=== PATIENT | female | born 1955 | race Caucasian/White ===

== ENCOUNTER 2020-09-22 12:16 | Emergency (ER) | payer OTHER, SELFPAY ==
--- NOTE | ~2020-09-22 | XR_ITS ---
EXAMINATION: XR chest 2V EXAM DATE: 09/22/2020 12:45 INDICATION: Cough, history lung metastases. Clinical concern for pneumonia. TECHNIQUE: Frontal and lateral projections of the chest obtained and reviewed. There is no prior june dy for comparison. FINDINGS: There is a left-sided portacatheter. The lungs are clear. There are no pleural effusions. The cardiomediastinal silhouette is within normal limits. There is no pneumothorax suspected. The bones and soft tissues are unremarkable. There are cholecystectomy clips. IMPRESSION: No acute cardiopulmonary findings. Reviewed, dictated and finalized at location A. [employer]
[2020-09-22 12:29] VITALS: BP 132/74; PULSE 82; RESP 18; TEMP 37.2; O2SAT 95
--- NOTE | 2020-09-22 13:01 | ED.URI ---
HPI - URI/Sore Throat General Chief Complaint: Upper Respiratory Infection Stated Complaint: cough,runny nose Time Seen by Provider: 09/22/20 12:36 Source: patient and RN notes reviewed Mode of arrival: ambulatory Limitations: no limitations History of Present Illness HPI Narrative: Patient presents today complaining of a 4-day history of rhinorrhea, productive cough with yellow/green sputum that is now blood-tinged, sore throat, bilateral ear pain. Patient had a COVID-19 test done 2 days ago prior to a colonoscopy. That test was negative. Patient is currently undergoing chemotherapy for breast cancer with metastases to lung, liver, and colon. Denies shortness of breath or nasal congestion. She currently rates her pain 5/10 and has been taking Coricidin with relief. Since becoming ill, she has not been in contact with her oncologist. She is a non-smoker. States she was recently exposed to her granddaughter who is also sick with similar symptoms. MD elicited complaint: cough, sore throat and rhinorrhea Related Data Allergies Allergy/AdvReac Type Severity Reaction Status Date / Time No Known Allergies Allergy Verified 09/22/20 13:03 Review of Systems Review of Systems: Narrative: CONSTITUTIONAL: Denies body aches, fever, chills, or sweats. EYES: Denies visual changes, redness, or discharge. ENT: Denies congestion. + Rhinorrhea, sore throat, ear pain CARDIOVASCULAR: Denies chest pain, palpitations, or edema. RESPIRATORY: Denies dyspnea.+ Productive cough GASTROINTESTINAL: Denies abdominal pain, nausea, vomiting, or diarrhea. GENITOURINARY: Denies dysuria or hematuria. SKIN: Denies rash, itching, or wounds. MUSCULOSKELETAL: Denies back pain, joint pain, or myalgia. NEUROLOGIC: Denies numbness, tingling, or weakness. + Headache PSYCH: Denies depression or anxiety. PMFSH Past Medical History Medical History (Updated 09/22/20 @ 13:53 by Melia Garcia, [facility], ) Crohn's disease Diabetes Hypertension Metastatic breast cancer Comments At time of signature, I have reviewed and agree with nursing past medical, surgical, social and family history unless otherwise noted. Please see nursing chart for further information. There is no relevant family history pertinent to the presenting complaint Exam Narrative: Exam Narrative: GENERAL: Ill-appearing, well-nourished, and in no acute distress. HEAD: Normocephalic, atraumatic. EYES: EOMI. No redness or drainage. Conjunctivae normal. ENT: Mucous membranes pink and moist. Nares clear with rhinorrhea. TMs normal bilaterally. Throat normal. Uvula midline. NECK: Normal AROM. Supple. No lymphadenopathy. CHEST: No respiratory distress. Clear to auscultation. HEART: Regular rate and rhythm. No murmur appreciated. Normal peripheral pulses. EXTREMITIES: Normal range of motion. No edema. SKIN: Warm, dry, no rash. Capillary refill normal. Normal skin turgor. NEURO: No focal deficits. Alert and oriented x3. Gait steady. PSYCH: Normal affect. No signs of depression or anxiety. Course Vital Signs Vital signs: Vital Signs Temperature 98.9 F 09/22/20 12:29 Pulse Rate 82 09/22/20 12:29 Respiratory Rate 18 09/22/20 12:29 Blood Pressure 132/74 09/22/20 12:29 Pulse Oximetry 95 09/22/20 12:29 Temperature 98.9 F 09/22/20 12:29 Pulse Rate 82 09/22/20 12:29 Respiratory Rate 18 09/22/20 12:29 Blood Pressure 132/74 09/22/20 12:29 Pulse Oximetry 95 09/22/20 12:29 Reviewed. Pt has been instructed to follow up with her PCP regarding her elevated blood pressure today. MDM - URI/Sore Throat MDM Narrative Medical decision making narrative: At this time, due to immunosuppression, I feel it indicated to treat patient with antibiotics at this time. Anticipatory guidance given. Patient agrees to call oncologist tomorrow to discuss symptoms. Differential Diagnosis Differential diagnosis: Likely upper respiratory infection, sinusitis, viral infection, bronchitis
== END 2020-09-22 13:20 | disposition home or self-care (01) ==
PROVIDERS: Emergency Provider Nurse Practitioner; PCP Family Medicine
DX: J06.9 Acute upper respiratory infection, unspecified (principal); K50.90 Crohn's disease, unspecified, without complications; E11.9 Type 2 diabetes mellitus without complications; I10 Essential (primary) hypertension; C50.919 Malignant neoplasm of unspecified site of unspecified female breast; C78.00 Secondary malignant neoplasm of unspecified lung; C78.7 Secondary malignant neoplasm of liver and intrahepatic bile duct; C78.5 Secondary malignant neoplasm of large intestine and rectum
CPT/HCPCS: 71046; 99203; G0463

== ENCOUNTER 2021-03-13 15:29 | Emergency (ER) | payer OTHER, SELFPAY ==
[2021-03-13 15:42] VITALS: BP 129/68; PULSE 73; RESP 20; TEMP 36.9; O2SAT 97
--- NOTE | 2021-03-13 16:19 | ED.SKABFB ---
HPI - Skin/Abscess/Foreign Bdy General Chief complaint: Skin/Abscess/Foreign Body Stated complaint: Rash on left arm Time Seen by Provider: 03/13/21 16:00 Source: patient Mode of arrival: ambulatory Limitations: no limitations History of Present Illness HPI narrative: Verito Villela is a 65 yo female with metastatic breast cancer, metastatic colon cancer, GERD, depression, HTN, DM, who [facility] with a rash on her left palmar side of her lower arm that is now starting on the same area on the right arm. It looks like severe contact dermatitis, is pruretic I called her oncologist to told her to use Benadryl and hydrocortisone cream that the rash continues to spread. It is on her lower arms and is not on any other part of her body and is on bilateral lower arms Related Data Home Medications Medication Instructions Recorded Confirmed amlodipine 10 mg PO DAILY 03/13/21 03/13/21 aspirin 81 mg PO DAILY 03/13/21 03/13/21 bupropion HCl 150 mg PO DAILY 03/13/21 03/13/21 escitalopram oxalate 20 mg PO DAILY 03/13/21 03/13/21 ferrous sulfate 325 mg PO DAILY 03/13/21 03/13/21 folic acid 1 mg PO DAILY 03/13/21 03/13/21 hydrochlorothiazide 25 mg PO DAILY 03/13/21 03/13/21 hydrocodone-acetaminophen 1 tablet PO Q6H PRN 03/13/21 03/13/21 losartan 100 mg PO DAILY 03/13/21 03/13/21 metformin 1,000 mg PO BID 03/13/21 03/13/21 metoprolol succinate 100 mg PO DAILY 03/13/21 03/13/21 omeprazole 20 mg PO DAILY 03/13/21 03/13/21 ondansetron HCl 4 mg PO Q6H PRN 03/13/21 03/13/21 prochlorperazine maleate 10 mg PO Q4H PRN 03/13/21 03/13/21 sulfasalazine 1,000 mg PO TID 03/13/21 03/13/21 Allergies Allergy/AdvReac Type Severity Reaction Status Date / Time No Known Allergies Allergy Verified 03/13/21 16:03 Review of Systems Review of Systems: Narrative: CONSTITUTIONAL: Denies fever, chills, sweats. EYES: Denies visual changes, redness, discharge. ENT: Denies rhinorrhea, congestion, sore throat, otalgia. CARDIOVASCULAR: Denies chest pain, palpitations, edema. RESPIRATORY: Denies dyspnea, wheezing, cough GASTROINTESTINAL: Denies abdominal pain, nausea, vomiting, diarrhea. GENITOURINARY: Denies dysuria, hematuria, abnormal discharge SKIN: dermatitis on L forearm , palmar side, starting on R palmar side NEUROLOGIC: Denies numbness, or focal weakness. PSYCHIATRIC: Denies anxiety or depression. [facility] Past Medical History Medical History Crohn's disease Diabetes Hypertension Metastatic breast cancer Metastatic colon cancer to liver Social History Social History (Updated 03/13/21 @ 16:29 by Greer Farah CNP) Smoking status: Former smoker Substance use: former Comments At time of signature, I agree with nursing past medical, surgical, social and family history. There is no relevant family history pertinent to the presenting complaint. Exam Narrative: Exam Narrative: GENERAL: This is a well-nourished, well-developed patient, in mild distress. HEAD: normocephalic, atraumatic. EYES:. Sclera clear/white. Vision is grossly intact. EARS: External ears normal, Hearing grossly intact. NOSE: External nose normal without nasal discharge, nares without redness, no rhinorrhea. THROAT: Mucous membranes moist, NECK: Neck supple, non-tender CARDIOVASCULAR: Regular rate and rhythm without murmurs, gallops, or rubs. RESPIRATORY: Clear to auscultation. Breath sounds equal bilaterally. No wheezes, rales, or rhonchi. GASTROINTESTINAL: Abdomen soft, SKIN: warm, intact with rash on left palmar forearm, coalesced rash, small area again on right, pruritic, not vesicular NEURO: awake, alert, and oriented to person, place and time. There were no obvious focal neurologic abnormalities. Steady gait EXTREMITIES: Normal range of motion. BACK: Nontender without deformity Course Course Emergency Course: Patient comes with complaints of rash and forearm Started on prednisone and Pepcid discu
== END 2021-03-13 16:42 | disposition home or self-care (01) ==
PROVIDERS: Emergency Provider Nurse Practitioner
DX: L23.7 Allergic contact dermatitis due to plants, except food (principal); Z87.891 Personal history of nicotine dependence; K50.90 Crohn's disease, unspecified, without complications; E11.9 Type 2 diabetes mellitus without complications; I10 Essential (primary) hypertension; K21.9 Gastro-esophageal reflux disease without esophagitis; C50.919 Malignant neoplasm of unspecified site of unspecified female breast; C78.5 Secondary malignant neoplasm of large intestine and rectum; C78.7 Secondary malignant neoplasm of liver and intrahepatic bile duct
CPT/HCPCS: 99213; G0463